=== PATIENT | female | born 1995 | race Two or more races ===

== ENCOUNTER 2018-03-26 16:21 | Emergency (ER) | payer SELFPAY ==
[2018-03-26 17:39] LABS: URINE HCG POC HCG NEGATIVE (Negative)
== END 2018-03-26 18:20 | disposition home or self-care (01) ==
LOC: ER 18:20
DX: S16.1XXA Strain of muscle, fascia and tendon at neck level, initial encounter (principal); V43.52XA Car driver injured in collision with other type car in traffic accident, initial encounter; Y93.I9 Activity, other involving external motion; Y92.410 Unspecified street and highway as the place of occurrence of the external cause; Y99.8 Other external cause status
CPT/HCPCS: 72125; 81025; 99284-25

== ENCOUNTER 2018-04-03 17:41 | Emergency (ER) | payer SELFPAY | END 2018-04-03 18:50 | disposition home or self-care (01) | LOC: ER 17:41 | DX: R51 Headache (principal); F43.9 Reaction to severe stress, unspecified | CPT/HCPCS: 99282 ==